=== PATIENT | female | born 1970 | race Caucasian/White ===

== ENCOUNTER 2023-07-08 10:17 | Emergency (ER) | payer BC ==
[~2023-07-08] VITALS: Ht 162.6 cm; Wt 56.7 kg
[2023-07-08 10:55] LABS: BASOPHILS % (AUTO) 0.1 % (0.0-2.0); HEMATOCRIT 45.5 % (31.2-41.9); HEMOGLOBIN 15.1 g/dL (10.9-14.3); LYMPHOCYTES # (AUTO) 1.2 K/uL (0.8-4.8); LYMPHOCYTES % (AUTO) 7.6 % (20.5-51.5); MEAN CORPUSCULAR HEMOGLOBIN 30.9 uug (24.7-32.8); MEAN CORPUSCULAR HGB CONC 33 g/dL (32.3-35.6); MEAN CORPUSCULAR VOLUME 92.9 fL (75.5-95.3); MONOCYTES # (AUTO) 0.7 K/uL (0.1-1.30); MONOCYTES % (AUTO) 4.5 % (0.0-11.0); NEUTROPHILS # (AUTO) 14.3 K/uL (1.8-8.9); NEUTROPHILS % (AUTO) 87.8 % (38.5-71.5); PLATELET COUNT (AUTO) 348 K/uL (179-408); RED BLOOD CELL COUNT(AUTO) 4.89 MIL/uL (3.63-4.92); RED CELL DISTRIBUTION WIDTH 13.6 % (12.3-17.7); WHITE BLOOD COUNT (AUTO) 16.3 K/uL (3.8-11.8)
[2023-07-08] MEDS ORDERED: ONDANSETRON 4 MG/2 ML VIAL ONE (10:55)
[2023-07-08] MEDS ORDERED: KETOROLAC TROMETHAMINE 15 MG INJ ONE (10:55)
[2023-07-08] MEDS ORDERED: FAMOTIDINE. 20 MG/2 ML VIAL IV ONE (10:56)
[2023-07-08] MEDS: IV NORMAL SALINE 1000 ML BAG IV ONE (11:06)
[2023-07-08] MEDS: KETOROLAC TROMETHAMINE 15 MG INJ IVP ONE (11:07)
[2023-07-08] MEDS: ONDANSETRON 4 MG/2 ML VIAL IV ONE (11:07)
[2023-07-08] MEDS: FAMOTIDINE. 20 MG/2 ML VIAL IV ONE (11:07)
[2023-07-08 11:20] LABS: ALBUMIN 4.1 g/dL (3.4-5.0); BILIRUBIN,DIRECT 0.2 mg/dL (0.0-0.2); BILIRUBIN,TOTAL 0.7 mg/dL (0.2-1.0); CREATININE 0.9 mg/dL (0.6-1.3); POTASSIUM 4.1 mmol/L (3.5-5.1); TOTAL PROTEIN, SERUM 8.9 g/dL (6.4-8.2)
[2023-07-08 11:31] LABS: DIFFERENTIAL COMMENT 1
[2023-07-08] MEDS ORDERED: AMOX-430 PO (12:37)
[2023-07-08] MEDS ORDERED: ONDA4TAB11 PO (12:37)
[2023-07-08] MEDS ORDERED: DICY20TA11 PO (12:37)
[2023-07-08 12:51] VITALS: BP 128/90; O2SAT 100
== END 2023-07-08 12:52 | disposition home or self-care (01) ==
LOC: ER 10:17
DX: K52.9 Noninfective gastroenteritis and colitis, unspecified (principal); R11.2 Nausea with vomiting, unspecified; Z79.899 Other long term (current) drug therapy
CPT/HCPCS: 99285; 74176; 96374; 96375; 96361; 80076; 80048; 83690; 85025; 36415; J3490; J1885; J2405; J7040; A4606; A4663

== ENCOUNTER 2024-09-25 12:46 | Emergency (ER) | payer BC ==
[~2024-09-25 12:46] MED LIST: AMOX-430 PO; DICY20TA11 PO; ONDA4TAB11 PO
== END 2024-09-25 17:10 | disposition left against medical advice (07) ==
LOC: ER 12:57
DX: R51.9 Headache, unspecified (principal); Z53.21 Procedure and treatment not carried out due to patient leaving prior to being seen by health care provider